=== PATIENT | female | born 1995 ===

== ENCOUNTER 2018-06-02 17:07 | Emergency (ER) | payer SELFPAY ==
[2018-06-02 17:45] VITALS: TEMP 98.5
[2018-06-02] MEDS ORDERED: DiphenhydrAMINE 50 mg/ml Inj IM STA (19:37)
[2018-06-02] MEDS ORDERED: Tmp-Smz 800 mg-160 mg DS Tab PO STA (19:37)
[2018-06-02] MEDS ORDERED: Tmp-Smz 800 mg-160 mg DS Tab ONE (19:46)
[2018-06-02] MEDS ORDERED: DiphenhydrAMINE 50 mg/ml Inj ONE (19:49)
--- NOTE | 2018-06-02 19:57 | C.PDOC ---
History Of Present Illness 23 year old female, morbidly obese, presents to the emergency department with complaints of two patches of erythema and warmth to her posterior upper arms for the last five days. Patient also reports similar spots on her right foot and abdomen, and reports a "feverish" feeling. Patient denies using new skin products, and denies being bitten. Time Seen by Provider: 06/02/18 18:36 Chief Complaint (Nursing): Abnormal Skin Integrity History Per: Patient History/Exam Limitations: no limitations Onset/Duration Of Symptoms: Days (5) Current Symptoms Are (Timing): Still Present Location Of Injury: Right: Arm, Foot, Left: Arm, Anterior: Abdomen, Posterior: Arm Quality Of Symptoms: Itching Past Medical History Reviewed: Historical Data, Nursing Documentation, Vital Signs Vital Signs: Last Vital Signs Temp 98.5 F 06/02/18 17:41 Pulse 84 06/02/18 17:41 Resp 20 06/02/18 17:41 BP 129/83 06/02/18 17:41 Pulse Ox 100 06/02/18 17:41 - Medical History PMH: Hypercholesterolemia, Chronic Kidney Disease Surgical History: Appendectomy Family History: States: No Known Family Hx - Social History Hx Alcohol Use: Yes Hx Substance Use: No Review Of Systems Constitutional: Positive for: Fever. Negative for: Chills Cardiovascular: Negative for: Chest Pain Respiratory: Negative for: Shortness of Breath Skin: Positive for: Rash Physical Exam - Physical Exam Appears: Non-toxic, No Acute Distress Skin: Warm, Dry, Rash (well-circumscribed, erythematous, slightly raised warm patches to posterior upper arms bilaterally. ), Other (Nodule to dorsum of right foot, mild erythema to lower abdomen) Head: Atraumatic, Normacephalic Eye(s): bilateral: Normal Inspection, PERRL Nose: Normal Oral Mucosa: Moist Neck: Normal, Supple Chest: Symmetrical, No Tenderness Cardiovascular: Rhythm Regular, No Murmur Respiratory: Normal Breath Sounds, No Rales, No Rhonchi, No Wheezing Gastrointestinal/Abdominal: Soft, No Tenderness, No Guarding, No Rebound Extremity: Tenderness (to bilateral posterior upper arms ) Neurological/Psych: Oriented x3, Normal Speech, Normal Cognition ED Course And Treatment O2 Sat by Pulse Oximetry: 100 (RA) Pulse Ox Interpretation: Normal Medical Decision Making Medical Decision Making: Plan: Bactrim DS 1 tab PO Benadryl 50mg PO Keflex 500mg PO Prednisone 60mg PO POC Urine Abx to treat for cellulitis vs. allergic reaction. 2030 pt wjth decreased itching to arms and decreased areas of redness. d/.c with prednisne, benadryl, bactrim and keflex Disposition Counseled Patient/Family Regarding: Diagnosis, Need For Followup, Rx Given - Disposition Disposition: HOME/ ROUTINE Disposition Time: 20:39 Condition: GOOD Additional Instructions: Kira todos los medicamentos shobha prescritos. Aplique compresas fras en las reas [place] para disminuir la hinchazn. Si el enrojecimiento se extiende ms all de las lneas dibujadas en la piel, debe regresar a la cassidy de emergencias de inmediato. Si el dolor empeora, la fiebre se desarrolla, el enrojecimiento empeora, vuelva a la cassidy de emergencias, de lo contrario, consulte a melchor mdico sin falta el . Take all medications as prescrbied. Apply cool compresses to red areas on arms to decrease swelling. If redness spreads further out than lines drawn on skin, then you need to return to the ER right away. If pain worsens, fever develops, redness worse, return to ER, otherwise follow up with your doctor without fail on Tuesday. Prescriptions: Cephalexin [cephalexin] 500 mg PO Q6 #28 cap DiphenhydrAMINE [Benadryl] 25 mg PO Q6 #40 cap predniSONE [predniSONE Tab] 2 tab PO DAILY #8 tab Sulfamethoxazole/Trimethoprim [Bactrim DS 800 mg-160 mg] 1 tab PO BID #14 tab Instructions: Contact Dermatitis (DC), Cellulitis (Skin Infection), Adult (DC) Forms: General Discharge Instructions, [facility] (Lebanese), Work Excuse Print Language: GU[place] - Clinical Impression Clinical Impression: Contact dermatitis, Cellulitis of left upper arm, Cellulitis of right upper arm - PA / [employer] / Resident Statement MD/DO has reviewed & agrees with the documentation as recorded. - Scribe Statement The provider has reviewed the documentation as recorded by the Scribe (Mj Mckeon) All medical record entries made by the Scribe were at my direction and personally dictated by me. I have reviewed the chart and agree that the record accurately reflects my personal performance of the history, physical exam, medical decision making, and the department course for this patient. I have also personally directed, reviewed, and agree with the discharge instructions and disposition.
[2018-06-02 20:58] VITALS: BP 128/84; PULSE 79; RESP 16
[2018-06-03 17:48] VITALS: O2SAT 100
== END 2018-06-02 20:57 | disposition home or self-care (01) ==
LOC: C.ER 17:07
DX: L25.9 Unspecified contact dermatitis, unspecified cause (principal); L03.113 Cellulitis of right upper limb; L03.114 Cellulitis of left upper limb; E78.00 Pure hypercholesterolemia, unspecified; N18.9 Chronic kidney disease, unspecified; E66.01 Morbid (severe) obesity due to excess calories
CPT/HCPCS: 96372; 99283; J1200